=== PATIENT | male | born 1990 | race Caucasian/White ===

== ENCOUNTER 2022-11-12 12:42 | Emergency (ER) | payer OTHER ==
[2022-11-12] MEDS ORDERED: Cyclobenzaprine 10 MG Tab PO ONE (12:54)
[2022-11-12] MEDS ORDERED: Acetaminophen 325 MG Tab PO ONE (12:54)
[2022-11-12] MEDS ORDERED: Ibuprofen 600 MG Tab PO ONE (12:54)
[2022-11-12] MEDS ORDERED: Fluorescein 1 MG Ophth Strip EYERT ONE (14:17)
[2022-11-12] MEDS ORDERED: Tetracaine HCl/PF 0.5% 4 ML Bottle EYERT ONE (14:17)
[2022-11-12] MEDS ORDERED: Gentamicin 0.3% Ophth Soln 5 ML Bottle EYERT STA (14:47)
== END 2022-11-12 15:09 | disposition home or self-care (01) ==
LOC: MW.ED 12:42
DX: S05.01XA Injury of conjunctiva and corneal abrasion without foreign body, right eye, initial encounter (principal); S05.11XA Contusion of eyeball and orbital tissues, right eye, initial encounter; H11.31 Conjunctival hemorrhage, right eye; M54.50 Low back pain, unspecified; M25.511 Pain in right shoulder; Z88.5 Allergy status to narcotic agent; V49.9XXA Car occupant (driver) (passenger) injured in unspecified traffic accident, initial encounter; Y92.410 Unspecified street and highway as the place of occurrence of the external cause
CPT/HCPCS: 70450; 72125; 72128; 72131; 81003; 99285; A9270; 99283; J3490